=== PATIENT | female | born 1940 | race Caucasian/White ===

== ENCOUNTER 2016-04-04 21:09 | Inpatient (IN) | payer MEDICARE ==
[~2016-04-04] VITALS: Ht 162.6 cm; Wt 69.1 kg
[2016-04-04] MEDS ORDERED: OPTIRAY 350 100 ML VIAL HMH IV ONE (21:10)
[2016-04-04] MEDS ORDERED: ACETAMINOPHEN 325 MG TAB ONE (21:16)
[2016-04-04] MEDS ORDERED: SODIUM CHLORIDE 0.9% 1,000 ML ONE (22:15)
[2016-04-05] VITALS (7 sets, daily range): BP systolic 110–140; RESP 18–101; TEMP 97.9–98.8
[2016-04-05] MEDS ORDERED: SODIUM CHLORIDE 0.9% 1,000 ML ONE (00:04)
[2016-04-05] MEDS ORDERED: ACETAMINOPHEN 325 MG TAB ONE (01:16)
[2016-04-05] MEDS ORDERED: BISACODYL 10 MG SUPP RECTAL PRN (02:40)
[2016-04-05] MEDS ORDERED: ALU/MAG/SIM 30 ML UDC PO PRN (02:40)
[2016-04-05] MEDS ORDERED: SALINE FLUSH 10 ML FLUSH PRN (02:40)
[2016-04-05] MEDS ORDERED: MAG HYDROX 30 ML UDC PO PRN (02:40)
[2016-04-05] MEDS ORDERED: SODIUM CHLORIDE 0.9% 1,000 ML IV SCH (02:40)
[2016-04-05] MEDS ORDERED: BISACODYL EC 5 MG TAB PO PRN (02:40)
[2016-04-05] MEDS: DUONEB INH SCH ×6 (04:48→22:36)
[2016-04-05] MEDS: SODIUM CHLORIDE 0.9% FLUSH BAG 500 ML IV SCH (05:53)
[2016-04-05] MEDS ORDERED: LEVOFLOXACIN 750 MG/150 ML 150 ML IV SCH (05:56)
[2016-04-05] MEDS: SALINE FLUSH 10 ML FLUSH SCH ×2 (08:38→20:22)
[2016-04-05] MEDS: LEVOFLOXACIN 750 MG/150 ML 150 ML IV SCH (08:38)
[2016-04-05] MEDS: ACETAMINOPHEN 325 MG TAB PO PRN ×2 (12:11→18:48)
[2016-04-05] MEDS ORDERED: Losartan 50 MG TAB PO SCH (13:05)
[2016-04-05] MEDS: NEB-BROVANA 15 MCG/2 ML INH SCH (13:05)
[2016-04-05] MEDS ORDERED: NEB-ALBUTEROL 2.5 MG/3 ML INH SCH (13:05)
[2016-04-05] MEDS: LEVOTHYROXINE 0.1 MG TAB PO SCH (16:28)
[2016-04-05] MEDS: DABIGATRAN 150 MG CAP PO SCH ×2 (16:28→20:21)
[2016-04-05] MEDS: DILTIAZEM CD 180 MG CAP PO SCH (16:28)
[2016-04-05] MEDS: Furosemide 40 MG TAB PO SCH (16:28)
[2016-04-05] MEDS: KCL CR 10 MEQ TAB PO SCH ×2 (16:29→20:22)
[2016-04-05] MEDS: LORAZEPAM 0.5 MG TAB PO SCH ×2 (16:30→20:22)
[2016-04-05] MEDS: NEB-BUDESONIDE 0.5 MG INH SCH (18:24)
[2016-04-05] MEDS: NEBIVOLOL 10 MG TAB PO SCH (20:21)
[2016-04-05] MEDS: DIGOXIN 0.125 MG TAB PO SCH (20:21)
[2016-04-05] MEDS: FLUOXETINE 20 MG CAP PO SCH (20:22)
[2016-04-05] MEDS: TRAZODONE 50 MG TAB PO SCH (20:22)
[2016-04-06] MEDS: DUONEB INH SCH ×6 (02:23→22:15)
[2016-04-06 03:19] VITALS: BP_SYST 130; RESP 18; TEMP 97.7
[2016-04-06] MEDS: LEVOTHYROXINE 0.1 MG TAB PO SCH (06:13)
[2016-04-06] MEDS: SODIUM CHLORIDE 0.9% FLUSH BAG 500 ML IV SCH (06:13)
[2016-04-06] MEDS: NEB-BUDESONIDE 0.5 MG INH SCH ×2 (07:00→18:20)
[2016-04-06 07:41] VITALS: BP_SYST 137; RESP 18; TEMP 98
[2016-04-06] MEDS: NEB-BROVANA 15 MCG/2 ML INH SCH ×2 (07:43→18:20)
[2016-04-06] MEDS ORDERED: MISSING DOSE XX ONE (08:40)
[2016-04-06] MEDS: LEVOFLOXACIN 750 MG/150 ML 150 ML IV SCH (08:43)
[2016-04-06] MEDS: DABIGATRAN 150 MG CAP PO SCH ×2 (08:43→20:09)
[2016-04-06] MEDS: Furosemide 40 MG TAB PO SCH ×2 (08:43→17:50)
[2016-04-06] MEDS: SALINE FLUSH 10 ML FLUSH SCH ×2 (08:43→20:11)
[2016-04-06] MEDS: LORAZEPAM 0.5 MG TAB PO SCH ×2 (08:44→20:11)
[2016-04-06] MEDS: DILTIAZEM CD 180 MG CAP PO SCH (08:44)
[2016-04-06] MEDS: KCL CR 10 MEQ TAB PO SCH ×2 (08:44→20:10)
[2016-04-06] MEDS: Losartan 50 MG TAB PO SCH (10:39)
[2016-04-06 11:12] VITALS: BP_SYST 125; RESP 16; TEMP 98
[2016-04-06 14:54] VITALS: Ht 162.6 cm; Wt 69.1 kg
[2016-04-06] MEDS: **NOTE TO NURSE XX SCH ×2 (14:56→20:00)
[2016-04-06 15:06] VITALS: BP_SYST 115; RESP 16; TEMP 97.2
[2016-04-06 19:00] VITALS: BP_SYST 130; RESP 17; TEMP 98.3
[2016-04-06] MEDS: TRAZODONE 50 MG TAB PO SCH (20:09)
[2016-04-06] MEDS: NEBIVOLOL 10 MG TAB PO SCH (20:09)
[2016-04-06] MEDS: FLUOXETINE 20 MG CAP PO SCH (20:09)
[2016-04-06] MEDS: DIGOXIN 0.125 MG TAB PO SCH (20:11)
[2016-04-06 23:20] VITALS: BP_SYST 138; RESP 17; TEMP 98.8
[2016-04-07] MEDS: DUONEB INH SCH ×6 (02:23→23:29)
[2016-04-07 03:25] VITALS: BP_SYST 129; RESP 17; TEMP 98.2
[2016-04-07] MEDS: LEVOTHYROXINE 0.1 MG TAB PO SCH (06:07)
[2016-04-07] MEDS: SODIUM CHLORIDE 0.9% FLUSH BAG 500 ML IV SCH (06:07)
[2016-04-07] MEDS: NEB-BROVANA 15 MCG/2 ML INH SCH ×2 (06:38→19:39)
[2016-04-07] MEDS: NEB-BUDESONIDE 0.5 MG INH SCH ×2 (06:39→19:39)
[2016-04-07] MEDS: **NOTE TO NURSE XX SCH (06:59)
[2016-04-07 07:15] VITALS: BP_SYST 147; RESP 16; TEMP 98.2
[2016-04-07] MEDS: DILTIAZEM CD 180 MG CAP PO SCH (08:08)
[2016-04-07] MEDS: DABIGATRAN 150 MG CAP PO SCH ×2 (08:08→20:23)
[2016-04-07] MEDS: LEVOFLOXACIN 750 MG/150 ML 150 ML IV SCH (08:08)
[2016-04-07] MEDS: Losartan 50 MG TAB PO SCH (08:08)
[2016-04-07] MEDS: KCL CR 10 MEQ TAB PO SCH ×2 (08:09→20:22)
[2016-04-07] MEDS: SALINE FLUSH 10 ML FLUSH SCH ×2 (08:09→20:22)
[2016-04-07] MEDS: LORAZEPAM 0.5 MG TAB PO SCH ×2 (08:09→22:26)
[2016-04-07] MEDS: Furosemide 40 MG TAB PO SCH ×2 (08:09→17:04)
[2016-04-07 11:26] VITALS: BP_SYST 120; RESP 16; TEMP 98.7
[2016-04-07 15:14] VITALS: BP_SYST 124; RESP 16; TEMP 98.2
[2016-04-07 19:00] VITALS: BP_SYST 138; RESP 16; TEMP 98.5
[2016-04-07] MEDS: FLUOXETINE 20 MG CAP PO SCH (20:22)
[2016-04-07] MEDS: NEBIVOLOL 10 MG TAB PO SCH (20:23)
[2016-04-07] MEDS: DIGOXIN 0.125 MG TAB PO SCH (20:23)
[2016-04-07] MEDS: TRAZODONE 50 MG TAB PO SCH (22:27)
[2016-04-07 23:29] VITALS: BP_SYST 134; RESP 16; TEMP 99.2
[2016-04-08] MEDS: DUONEB INH SCH ×6 (03:00→22:26)
[2016-04-08 03:33] VITALS: BP_SYST 147; RESP 16; TEMP 98.4
[2016-04-08] MEDS: SODIUM CHLORIDE 0.9% FLUSH BAG 500 ML IV SCH (05:34)
[2016-04-08] MEDS: LEVOTHYROXINE 0.1 MG TAB PO SCH (06:10)
[2016-04-08] MEDS: NEB-BUDESONIDE 0.5 MG INH SCH ×2 (06:30→18:24)
[2016-04-08] MEDS: NEB-BROVANA 15 MCG/2 ML INH SCH ×2 (06:30→18:24)
[2016-04-08 08:01] VITALS: BP_SYST 143; RESP 14; TEMP 97.6
[2016-04-08] MEDS: Losartan 50 MG TAB PO SCH (08:22)
[2016-04-08] MEDS: SALINE FLUSH 10 ML FLUSH SCH ×2 (08:22→20:44)
[2016-04-08] MEDS: LORAZEPAM 0.5 MG TAB PO SCH ×2 (08:23→21:53)
[2016-04-08] MEDS: DILTIAZEM CD 180 MG CAP PO SCH (08:23)
[2016-04-08] MEDS: Furosemide 40 MG TAB PO SCH ×2 (08:23→16:27)
[2016-04-08] MEDS: KCL CR 10 MEQ TAB PO SCH ×2 (08:23→20:43)
[2016-04-08] MEDS: DABIGATRAN 150 MG CAP PO SCH ×2 (08:23→20:44)
[2016-04-08] MEDS: NYSTATIN 500,000 UNITS/5 ML SUSP SWISH.SWAL SCH ×3 (08:24→20:44)
[2016-04-08] MEDS: FLUOXETINE 20 MG CAP PO SCH (08:27)
[2016-04-08 11:53] VITALS: BP_SYST 123; RESP 16; TEMP 97.4
[2016-04-08 16:21] VITALS: BP_SYST 106; RESP 18; TEMP 97.6
[2016-04-08 19:17] VITALS: BP_SYST 113; RESP 18; TEMP 97.7
[2016-04-08] MEDS: NEBIVOLOL 10 MG TAB PO SCH (20:43)
[2016-04-08] MEDS: DIGOXIN 0.125 MG TAB PO SCH (20:44)
[2016-04-08] MEDS: TRAZODONE 50 MG TAB PO SCH (21:54)
[2016-04-08 23:16] VITALS: BP_SYST 123; RESP 16; TEMP 97.4
[2016-04-09] VITALS (8 sets, daily range): BP systolic 111–132; RESP 14–18; TEMP 97.1–98.1
[2016-04-09] MEDS: DUONEB INH SCH ×6 (02:19→23:13)
[2016-04-09] MEDS: SODIUM CHLORIDE 0.9% FLUSH BAG 500 ML IV SCH (05:39)
[2016-04-09] MEDS: LEVOTHYROXINE 0.1 MG TAB PO SCH (06:09)
[2016-04-09] MEDS: NEB-BROVANA 15 MCG/2 ML INH SCH ×2 (07:17→18:58)
[2016-04-09] MEDS: NEB-BUDESONIDE 0.5 MG INH SCH ×2 (07:17→18:58)
[2016-04-09] MEDS ORDERED: MISSING DOSE XX ONE (08:05)
[2016-04-09] MEDS: SALINE FLUSH 10 ML FLUSH SCH ×2 (08:55→20:05)
[2016-04-09] MEDS: DILTIAZEM CD 180 MG CAP PO SCH (08:55)
[2016-04-09] MEDS: KCL CR 10 MEQ TAB PO SCH ×2 (08:55→20:05)
[2016-04-09] MEDS: DABIGATRAN 150 MG CAP PO SCH ×2 (08:55→20:04)
[2016-04-09] MEDS: Furosemide 40 MG TAB PO SCH ×2 (08:56→16:34)
[2016-04-09] MEDS: Losartan 50 MG TAB PO SCH (08:56)
[2016-04-09] MEDS: NYSTATIN 500,000 UNITS/5 ML SUSP SWISH.SWAL SCH ×3 (08:56→20:05)
[2016-04-09] MEDS: LORAZEPAM 0.5 MG TAB PO SCH ×2 (08:56→20:04)
[2016-04-09] MEDS ORDERED: LEVOFLOXACIN 750 MG TAB PO SCH (09:00)
[2016-04-09] MEDS: ACETAMINOPHEN 325 MG TAB PO PRN (09:34)
[2016-04-09] MEDS: FLUOXETINE 20 MG CAP PO SCH (10:51)
[2016-04-09] MEDS: DIGOXIN 0.125 MG TAB PO SCH (20:04)
[2016-04-09] MEDS: NEBIVOLOL 10 MG TAB PO SCH (20:04)
[2016-04-09] MEDS: TRAZODONE 50 MG TAB PO SCH (20:05)
[2016-04-10] MEDS: DUONEB INH SCH ×6 (02:33→23:10)
[2016-04-10 04:29] VITALS: BP_SYST 133; RESP 17; TEMP 97.5
[2016-04-10] MEDS: SODIUM CHLORIDE 0.9% FLUSH BAG 500 ML IV SCH (06:00)
[2016-04-10] MEDS: LEVOTHYROXINE 0.1 MG TAB PO SCH (06:11)
[2016-04-10] MEDS: NEB-BROVANA 15 MCG/2 ML INH SCH ×2 (06:53→19:57)
[2016-04-10] MEDS: NEB-BUDESONIDE 0.5 MG INH SCH ×3 (06:53→19:58)
[2016-04-10 07:20] VITALS: BP_SYST 118; RESP 18; TEMP 98.4
[2016-04-10] MEDS: DABIGATRAN 150 MG CAP PO SCH ×2 (08:54→19:56)
[2016-04-10] MEDS: Furosemide 40 MG TAB PO SCH ×2 (08:54→17:13)
[2016-04-10] MEDS: DILTIAZEM CD 180 MG CAP PO SCH (08:54)
[2016-04-10] MEDS: Losartan 50 MG TAB PO SCH (08:54)
[2016-04-10] MEDS: KCL CR 10 MEQ TAB PO SCH ×2 (08:54→19:55)
[2016-04-10] MEDS: NYSTATIN 500,000 UNITS/5 ML SUSP SWISH.SWAL SCH ×3 (08:55→20:02)
[2016-04-10] MEDS: FLUOXETINE 20 MG CAP PO SCH (08:55)
[2016-04-10] MEDS: SALINE FLUSH 10 ML FLUSH SCH ×2 (08:58→20:04)
[2016-04-10] MEDS: LORAZEPAM 0.5 MG TAB PO SCH ×2 (08:58→22:14)
[2016-04-10 11:06] VITALS: BP_SYST 118; RESP 16; TEMP 98.4
[2016-04-10] MEDS: OMNIPAQUE 240 MG/ML, 50 ML PO SCH ×2 (12:52→15:46)
[2016-04-10 15:55] VITALS: BP_SYST 118; RESP 18; TEMP 98.4
[2016-04-10 19:52] VITALS: BP_SYST 129
[2016-04-10 19:53] VITALS: RESP 18; TEMP 98.2
[2016-04-10] MEDS: NEBIVOLOL 10 MG TAB PO SCH (19:56)
[2016-04-10] MEDS: DIGOXIN 0.125 MG TAB PO SCH (20:01)
[2016-04-10] MEDS: ACETAMINOPHEN 325 MG TAB PO PRN (20:07)
[2016-04-10] MEDS: TRAZODONE 50 MG TAB PO SCH (22:13)
[2016-04-11 00:14] VITALS: BP_SYST 151; RESP 20; TEMP 98
[2016-04-11] MEDS: DUONEB INH SCH ×5 (03:01→18:31)
[2016-04-11 03:47] VITALS: BP_SYST 137; RESP 20; TEMP 97.3
[2016-04-11] MEDS: SODIUM CHLORIDE 0.9% FLUSH BAG 500 ML IV SCH (06:00)
[2016-04-11] MEDS: LEVOTHYROXINE 0.1 MG TAB PO SCH (06:46)
[2016-04-11] MEDS: NEB-BUDESONIDE 0.5 MG INH SCH ×2 (07:09→18:31)
[2016-04-11] MEDS: NEB-BROVANA 15 MCG/2 ML INH SCH ×2 (07:09→18:31)
[2016-04-11 07:18] VITALS: BP_SYST 130; RESP 18; TEMP 97.6
[2016-04-11] MEDS: SALINE FLUSH 10 ML FLUSH SCH (08:00)
[2016-04-11] MEDS ORDERED: Furosemide 40 MG TAB PO SCH (09:00)
[2016-04-11] MEDS: KCL CR 10 MEQ TAB PO SCH (09:18)
[2016-04-11] MEDS: DABIGATRAN 150 MG CAP PO SCH (09:18)
[2016-04-11] MEDS: LORAZEPAM 0.5 MG TAB PO SCH (09:18)
[2016-04-11] MEDS: Losartan 50 MG TAB PO SCH (09:18)
[2016-04-11] MEDS: DILTIAZEM CD 180 MG CAP PO SCH (09:18)
[2016-04-11] MEDS: FLUOXETINE 20 MG CAP PO SCH (09:19)
[2016-04-11] MEDS: NYSTATIN 500,000 UNITS/5 ML SUSP SWISH.SWAL SCH ×2 (09:19→16:08)
[2016-04-11 11:09] VITALS: BP_SYST 143; RESP 18; TEMP 98.2
[2016-04-11 15:19] VITALS: BP_SYST 123; RESP 18; TEMP 97.8
[2016-04-11 15:54] VITALS: BP_SYST 123; RESP 18; TEMP 97.8
== END 2016-04-11 19:44 | DRG 872 ==
LOC: ENRESERVTM → ENRESERVDT → ENRESERV → ER 21:09 → DELPENDDIS 04-05 02:25 → EMR 04-05 02:25 → ENPENDDIS 04-05 02:25 → PCU 04-05 04:36 → 3NT 04-09 17:09
PROVIDERS: ADMIT Internal Medicine; ATTEND Internal Medicine
DX: R65.10 Systemic inflammatory response syndrome (SIRS) of non-infectious origin without acute organ dysfunction (principal); I50.32 Chronic diastolic (congestive) heart failure; Z99.81 Dependence on supplemental oxygen; I48.91 Unspecified atrial fibrillation; J44.9 Chronic obstructive pulmonary disease, unspecified; E03.9 Hypothyroidism, unspecified; I25.10 Atherosclerotic heart disease of native coronary artery without angina pectoris; Z95.5 Presence of coronary angioplasty implant and graft; Z95.0 Presence of cardiac pacemaker; Z79.02 Long term (current) use of antithrombotics/antiplatelets; R26.2 Difficulty in walking, not elsewhere classified
CPT/HCPCS: 36415; 71010; 74176; 74177; 80048; 80053; 81003; 82553; 83605; 83690; 83735; 83880; 84145; 84484; 85025; 87040; 87045; 87046; 87088; 87493; 87804; 87880; 93005; 94640; 94799; 96361; 96365; 96366; 99223; 99231; 99232; 99233; 99238